=== PATIENT | female | born 1995 | race Two or more races ===

== ENCOUNTER 2018-01-17 20:03 | Emergency (ER) | payer BC, OTHER ==
[2018-01-17] MEDS ORDERED: Ondansetron HCl/PF 4 MG/2 ML Vial ONE (21:17)
[2018-01-17] MEDS ORDERED: Ondansetron ODT 4 MG TAB ONE (21:18)
[2018-01-17] MEDS ORDERED: Ibuprofen 800 MG TAB ONE (21:38)
== END 2018-01-17 21:58 | disposition home or self-care (01) ==
LOC: ERS 20:03
DX: S39.011A Strain of muscle, fascia and tendon of abdomen, initial encounter (principal); X50.1XXA Overexertion from prolonged static or awkward postures, initial encounter
CPT/HCPCS: 99283; J2405; Q0162